=== PATIENT | male | born 1975 | race Caucasian/White ===

== ENCOUNTER 2018-09-25 17:23 | Emergency (ER) | payer MEDICAID ==
[~2018-09-25] VITALS: Ht 185.4 cm; Wt 66.2 kg
--- NOTE | 2018-09-25 18:00 | NUR ---
PT BIB [facility] FOR FEVER FOR 6 DAYS AND A COUGH FOR 4 DAYS. PT IS HOMELESS AND NOT ABLE TO GET ANTIBIOTICS ONCE DISCHARGED. CXR SHOWS PNEUMONIA IN LEFT LOWER LOBE.
--- NOTE | 2018-09-25 18:22 | NUR ---
REPORT TO CHIDI Joseph RN.
[2018-09-25] MEDS ORDERED: AZITHROMYCIN 500 MG in SODIUM CHLORIDE 0.9% 250 ML IV ONE (18:30)
[2018-09-25] MEDS ORDERED: SODIUM CHLORIDE 0.9% 1,000ML IVBOLUS ONE (18:30)
[2018-09-25] MEDS ORDERED: SODIUM CHLORIDE FLUSH 10ML SYR IVF ONE (18:30)
[2018-09-25] MEDS ORDERED: CEFTRIAXONE PMX 1GM/50ML 50 ML IV ONE (18:30)
--- NOTE | 2018-09-25 18:32 | NUR ---
LACTATE ORDERED PER PROTOCOL.
--- NOTE | 2018-09-25 18:39 | NUR ---
report taken from AALIYAH Dolan at bedside. Pt is meeting SIRS criteria as follows: source of infection (pneumonia), tachycardia (HR 97 at this time), and tachypnea (RR 24). No blood cultures have been ordered. These were discussed with DEREK Barraza and HE Khanna. RN was instructed to hold antibiotics until WBC and lactate have resulted. PIV placed, labs drawn and sent to lab, IVF initiated. awaiting lab results and dispo at this time.
--- NOTE | 2018-09-25 18:40 | NUR ---
pt presents to ED with c/o headache, fever, cough/congestion, and left foot numbness x 2 days. neuro is intact. pt is a&o, resps even and unlabored. pulse 3+ to bilateral dorsalis pedis. both feet pink with cap refill <3 sec, strength 5/5 to all extremities. no swelling or deformity noted to foot. all monitors in place, call light in reach.
[2018-09-25 18:52] LABS: BASOPHILS # (AUTO) 0.02 x10^3/uL (0-0.1); BASOPHILS % (AUTO) 0 % (0-1); EOSINOPHILS # (AUTO) 0.01 x10^3/uL (0-0.4); EOSINOPHILS % (AUTO) 0 % (1-7); LYMPHOCYTES # (AUTO) 1.36 x10^3/uL (1-3.4); LYMPHOCYTES % (AUTO) 18 % (22-44); MD NO; MEAN CORPUSCULAR HEMOGLOBIN 30.9 pg (27.5-34.5); MEAN CORPUSCULAR HGB CONC 33.7 g/dL (33.2-36.2); MEAN CORPUSCULAR VOLUME 91.7 fL (81-97); MEAN PLATELET VOLUME 6.9 fL (7.4-10.4); MONOCYTES % (AUTO) 13 % (2-9); NEUTROPHILS # (AUTO) 5.06 x10^3/uL (1.8-6.8); NEUTROPHILS % (AUTO) 68 % (42-75); PLATELET COUNT 249 x10^3/uL (130-400); RED CELL DISTRIBUTION WIDTH 14.2 % (9.4-14.8)
--- NOTE | 2018-09-25 18:54 | NUR ---
lactate tubes not present in ED lab draw cart at time of PIV placement, tube requested from lab. lactate drawn and sent to lab.
[2018-09-25 19:00] LABS: ALANINE AMINOTRANSFERASE 35 U/L (12-78); ALBUMIN 3.2 g/dL (3.4-5.0); ANION GAP 5 mmol/L (5-15); CALCIUM 8.8 mg/dL (8.5-10.1); CHLORIDE 101 mmol/L (98-107); CREATININE 0.91 mg/dL (0.7-1.3)
[2018-09-25 19:03] LABS: ALKALINE PHOSPHATASE 61 U/L (45-117); BILIRUBIN,TOTAL 0.2 mg/dL (0.2-1.0); TOTAL PROTEIN 7.3 g/dL (6.4-8.2)
[2018-09-25] MEDS ORDERED: CEFTRIAXONE PMX 1GM/50ML 50 ML ONE (19:27)
--- NOTE | 2018-09-25 19:32 | NUR ---
wbc and lactic acid levels wnl, this RN confirmed with EDPA Madi that no blood cx are indicated prior to IV abx admin. per EDPA, no cultures are needed at this time and pt is to be dc'd home once IV abx complete. pt resting on gurney, resps even and unlabcesar, lisandron.
--- NOTE | 2018-09-25 19:53 | NUR ---
PT REPORTS TO RN CP THAT IS BILATERAL, PRESENT UPON INSPIRATION. EKG ORDER OBTAINED. FINAL INSPECTOR AND TESTER IN PLACE.
--- NOTE | 2018-09-25 20:05 | NUR ---
EKG TAKEN BY EDT, REVIEWED BY HE
--- NOTE | 2018-09-25 20:13 | NUR ---
rocephin complete, zithromax gtt initiated. pt tolerating well. pt a&o, resps even and unlabored. sinus tach rate 90s on monitor with no ectopy. call light in reach. pt has no complaints at this time.
--- NOTE | 2018-09-25 21:25 | NUR ---
iv abx not complete yet as pt has bent arm where piv is located, pt educated to keep arm extented to allow IV abx to infuse at prescribed late. gtt infusing at 250mL/hr at this time. piv remains patent, site cdi. pt a&o, resps even and unlabored. nsr on car wash manager. call light in reach. pt to be dc'd once iv abx complete.
--- NOTE | 2018-09-25 22:02 | NUR ---
report to AALIYAH Peterson
[2018-09-25 22:08] VITALS: BP 114/58
== END 2018-09-25 22:10 | disposition home or self-care (01) ==
LOC: ED 18:21
DX: J15.9 Unspecified bacterial pneumonia (principal); F17.210 Nicotine dependence, cigarettes, uncomplicated
CPT/HCPCS: 36415; 71046; 80053; 83605; 85025; 93005; 96365; 96366; 96367; 99284; J0456; J0696; J7030; J7050

== ENCOUNTER 2018-09-26 22:01 | Emergency (ER) | payer MEDICAID ==
[~2018-09-26] VITALS: Ht 185.4 cm; Wt 65.5 kg
[2018-09-26 22:04] VITALS: BP 122/76
--- NOTE | 2018-09-26 22:21 | NUR ---
PT WAS SEEN HERE YESTERDAY, DX WITH PNU. DID NOT FILL MEDS. NO IMPROVEMENT IN S/S
[2018-09-26] MEDS ORDERED: AZITHROMYCIN 500 MG TABLET ONE (22:23)
--- NOTE | 2018-09-26 22:25 | NUR ---
PT MEDICATED PER MAR
[2018-09-26] MEDS ORDERED: AZITHROMYCIN 500 MG TABLET PO ONE (22:30)
[2018-09-26] MEDS ORDERED: IBUPROFEN 800 MG TABLET PO STA (23:09)
[2018-09-26] MEDS ORDERED: IBUPROFEN 800 MG TABLET ONE (23:12)
[2018-09-26] MEDS ORDERED: BENZONATATE 100 MG CAPSULE ONE (23:12)
[2018-09-26] MEDS ORDERED: BENZONATATE 100 MG CAPSULE PO ONE (23:30)
[2018-09-26] MEDS ORDERED: LIDOCAINE-MPF 1%, 5ML ONE (23:42)
== END 2018-09-26 23:21 | disposition home or self-care (01) ==
LOC: ED 23:05
DX: J15.9 Unspecified bacterial pneumonia (principal); M79.10 Myalgia, unspecified site; F17.210 Nicotine dependence, cigarettes, uncomplicated; Z72.9 Problem related to lifestyle, unspecified
CPT/HCPCS: 99284

== ENCOUNTER 2019-03-07 06:24 | Emergency (ER) | payer MEDICAID, OTHER ==
[~2019-03-07] VITALS: Ht 185.4 cm; Wt 68.2 kg
[2019-03-07 06:29] VITALS: BP 105/72
[2019-03-07] MEDS ORDERED: CEFTRIAXONE 250 MG IM ONE (07:00)
[2019-03-07] MEDS ORDERED: AZITHROMYCIN 500 MG TABLET PO ONE (07:00)
[2019-03-07] MEDS ORDERED: CEFTRIAXONE 250 MG ONE (07:16)
[2019-03-07] MEDS ORDERED: AZITHROMYCIN 250 MG TABLET ONE (07:17)
[2019-03-07 07:23] LABS: MICROSCOPIC AUTO
[2019-03-07 07:26] LABS: CULTURE INDICATED? YES
== END 2019-03-07 10:12 | disposition home or self-care (01) ==
LOC: ED 07:14
DX: A56.8 Sexually transmitted chlamydial infection of other sites (principal); A54.9 Gonococcal infection, unspecified; R30.0 Dysuria
CPT/HCPCS: 81001; 87086; 87491; 87591; 96372; 99283; J0696; 87077